=== PATIENT | female | born 1995 | race Caucasian/White ===

== ENCOUNTER 2022-06-24 11:04 | Emergency (ER) | payer OTHER, SELFPAY ==
[2022-06-24 11:28] VITALS: BP 121/75; PULSE 82; RESP 18; TEMP 36.8; O2SAT 99; BMI 28.3
[2022-06-24 14:45] LABS: Basophils Absolute Auto 0.02 K/uL (0.00-0.30); Basophils Percent Auto 0.3 % (0.0-3.0); Eosinophils Absolute Auto 0.06 K/uL (0.00-0.50); Eosinophils Percent Auto 0.8 % (0.0-7.0); Hematocrit 41.1 % (33.0-51.0); Hemoglobin* 13.7 gm/dL (12.0-16.0); Immature Granulocytes Abs Auto 0.01 K/uL (0.00-0.30); Immature Granulocytes Pct Auto 0.1 %; Lymphocytes Absolute Auto 2.22 K/uL (0.90-2.90); Lymphocytes Percent Auto 30.6 % (20-44); Mean Corpuscular HGB Conc 33 gm/dL (32-36); Mean Corpuscular Hemoglobin 31 pg (26-34); Mean Corpuscular Volume 92 fL (80-100); Monocytes Percent Auto 4.8 % (0.0-11.0); Neutrophils Percent Auto 63.4 % (42.0-72.0); Platelet Count* 293 K/uL (140-440); RDW Coefficient of Variation % 11.7 % (11.5-15.5); Red Blood Count 4.47 m/uL (4.00-5.20); White Blood Count* 7.26 K/uL (4.50-11.00)
[2022-06-24 14:59] LABS: Slide Review Reflex No
[2022-06-24 15:00] LABS: HCG Qualitative Serum* Positive (Negative)
--- NOTE | 2022-06-24 15:21 | ED.NURSE ---
bleeding has decreased
--- NOTE | 2022-06-24 15:23 | CRLHL7_ITS ---
For Patients: As a result of the Century Cures Act, medical imaging exams and procedure reports are released immediately into your electronic medical record. You may view this report before your referring provider. If you have questions, please contact your health care provider. INDICATION: Bleeding, status post miscarriage (passed sac yesterday). Question retained products of conception. COMPARISON: None. TECHNIQUE: 2D womack scale and color Doppler images were acquired of the pelvis using a transvaginal approach. FINDINGS: Sonographic images demonstrate a normal size and smooth outer contour of the uterus. The uterus is anteverted in position. The myometrium has uniform echotexture. The endometrial lining measures 6 mm in composite thickness. There is a small amount of complex avascular material within the endometrial canal in the uterine fundus which likely represents blood products. No evidence of retained products of conception. The right ovary measures 2.5 x 2.0 x 1.9 cm in size and the left ovary measures 2.3 x 1.3 x 2.1 cm in size. Blood flow is seen within both ovaries. No free fluid in the cul-de-sac. IMPRESSION: Small amount of complex avascular material within the endometrial canal likely represents blood products. No evidence of retained products of conception. Dictated by Rosibel Hoskins MD @ 06/24/2022 4:39:13 PM (Electronically Signed)
--- NOTE | 2022-06-24 17:16 | ED.PREGNANCY ---
HPI - General Date Seen: 06/24/22 Chief complaint: OB/Uterine Contractions Stated complaint: Miscarriage last night Time Seen by Provider: 06/24/22 13:56 Source: patient and family Mode of arrival: ambulatory Limitations: no limitations History of Present Illness HPI Narrative: Patient is a 26-year-old at 7 weeks gestation, presents here with a miscarriage. She started bleeding 3 days ago, she then passed some tissue, took a picture of it is able to show me here. Her bleeding has really slow down she does not have any cramping, but she called the clinic and was told to come into the emergency room. She does no idea what her blood status is, she does not have a history of anemia, denies any fevers chills or sweats dysuria frequency, he says her bleeding now is more like a heavy period. Blood is described as dark No history of any tubal issues, no history of STDs, or any risk factors for ectopic . MD Complaint: vaginal bleeding Related Data Home Medications Medication Instructions Recorded Confirmed No Known Home Medications 06/24/22 06/24/22 Allergies Allergy/AdvReac Type Severity Reaction Status Date / Time Penicillins Allergy Unknown Verified 06/24/22 11:32 Review of Systems Status of ROS: Reports: 10 or more systems reviewed and unremarkable except as noted in History and below PFSH [facility] Social History Smoking Status: Never smoker Do you use any of these nicotine containing products: None How often do you have a drink containing alcohol: never AUDIT-C Alcohol total score: 0 Non-prescribed substance use: denies use Exam Narrative: Exam Narrative: On examination in room 7 she is in no apparent distress her pupils equal round reactive to light she has excellent color to her conjunctiva, there is no scleral icterus, neck is supple, cranial nerves 3-12 are normal, oropharynx normal, her chest is clear easy respirations are noted, heart sounds are normal, normal S1-S2, no clicks murmurs or gallops, her abdomen is soft, slightly obese, no organomegaly, no tenderness, no palpable uterus, no CVA tenderness, she was all extremities independently and well. With a nurse present pelvic exam is done, this shows a no lip soft, with some scant blood coming out of it, and they os is closed. No masses no tenderness on bimanual examination, noted. Const: Vital Signs, click to edit/add: Vital Signs - 24 hr 06/24/22 11:28 Temperature 98.2 F Pulse Rate [Pulse Oximeter] 82 Respiratory Rate 18 Blood Pressure [Ri ght Upper Arm] 121/75 Pulse Oximetry 99 Oxygen Delivery Me thod Room Air Documenting provider has reviewed patient's vital signs: yes Course Course Hospital Course: I reviewed her case with the glue spreading machine operator on-call she recommended that at this point she can follow up with the clinic visit in 10-14 days, repeat the test done on the urine at that point if it is negative then further issue need to be done, if she has increasing bleeding, abdominal pain, passing out, she needs to come back, patient was agreeable to this plan after my discussion with her, Vital Signs Vital signs: Initial Vital Signs Temperature 98.2 F 06/24/22 11:28 Temperature Source Temporal Artery Scan 06/24/22 11:28 Pulse Rate 82 06/24/22 11:28 Respiratory Rate 18 06/24/22 11:28 Blood Pressure 121/75 06/24/22 11:28 Blood Pressure Mean 90 06/24/22 11:28 Pulse Oximetry 99 06/24/22 11:28 Oxygen Delivery Method 06/24/22 11:28 Vital Signs Temperature 98.2 F 06/24/22 11:28 Pulse Rate 82 06/24/22 11:28 Respiratory Rate 18 06/24/22 11:28 Blood Pressure 121/75 06/24/22 11:28 Pulse Oximetry 99 06/24/22 11:28 Oxygen Delivery Method 06/24/22 11:28 Temperature 98.2 F 06/24/22 11:28 Pulse Rate 82 06/24/22 11:28 Respiratory Rate 18 06/24/22 11:28 Blood Pressure 121/75 06/24/22 11:28 Pulse Oximetry 99 06/24/22 11:28 Oxygen Delivery Method 06/24/22 11:28 MDM - OB/Uterine Contractions MDM Narrative Medical decision making narrative: Differential diagnosis includes but is not limited to uterine fibroids, intrauterine , ectopic , placenta previa, spontaneous , and cancers of the uterus and cervix. This includes the life-threatening complications of hypovolemia secondary to bleeding, ectopic and cancer. Medical Records Attestation: I reviewed the patient's medical records. Lab Data Attestation: I reviewed the patient's lab results. Labs: Lab Results 06/24/22 06/24/22 06/24/22 Range/Units 14:30 14:30 14:30 WBC 7.26 (4.50-11.00) K/uL RBC 4.47 (4.00-5.20) m/uL Hgb 13.7 (12.0-16.0) gm/dL Hct 41.1 (33.0-51.0) % MCV 92 (80-100) fL MCH 31 (26-34) pg MCHC 33 (32-36) gm/dL RDW Coeff of Umu 11.7 (11.5-15.5) % Plt Count 293 (140-440) K/uL Neut % (Auto) 63.4 (42.0-72.0) % Lymph % (Auto) 30.6 (20-44) % [place] % (Auto) 4.8 (0.0-11.0) % Eos % (Auto) 0.8 (0.0-7.0) % Baso % (Auto) 0.3 (0.0-3.0) % Neut # (Auto) 4.60 (1.7-7.0) K/uL Lymph # (Auto) 2.22 (0.90-2.90) K/uL [place] # (Auto) 0.30 (0.00-0.90) K/UL Eos # (Auto) 0.06 (0.00-0.50) K/uL Baso # (Auto) 0.02 (0.00-0.30) K/uL Abs Immat Gran (auto) 0.01 (0.00-0.30) K/uL Imm/Tot Granulo (auto) 0.1 % HCG, Qual Positive (Negative) HCG, Quant mIU/mL Blood Type A Positive 06/24/22 Range/Units 15:24 WBC (4.50-11.00) K/uL RBC (4.00-5.20) m/uL Hgb (12.0-16.0) gm/dL Hct (33.0-51.0) % MCV (80-100) fL MCH (26-34) pg MCHC (32-36) gm/dL RDW Coeff of Umu (11.5-15.5) % Plt Count (140-440) K/uL Neut % (Auto) (42.0-72.0) % Lymph % (Auto) (20-44) % [place] % (Auto) (0.0-11.0) % Eos % (Auto) (0.0-7.0) % Baso % (Auto) (0.0-3.0) % Neut # (Auto) (1.7-7.0) K/uL Lymph # (Auto) (0.90-2.90) K/uL [place] # (Auto) (0.00-0.90) K/UL Eos # (Auto) (0.00-0.50) K/uL Baso # (Auto) (0.00-0.30) K/uL Abs Immat Gran (auto) (0.00-0.30) K/uL Imm/Tot Granulo (auto) % HCG, Qual (Negative) HCG, Quant 280.58 mIU/mL Blood Type Imaging Data Pelvic ultrasound: Attestation: I have reviewed the pertinent imaging results. Radiologist's impression: [facility] Patient ID:?[id number] Site Patient ID:?[id number]. Site :?[id number] Study:?US Pelvis TV-06/24/2022 4:00:58 PM Ordering Physician:Jordan Moody Final Report: INDICATION: Bleeding, status post miscarriage (passed sac yesterday). Question retained products of conception. COMPARISON: None. TECHNIQUE: 2D womack scale and color Doppler images were acquired of the pelvis using a transvaginal approach. FINDINGS: Sonographic images demonstrate a normal size and smooth outer contour of the uterus. The uterus is anteverted in position. The myometrium has uniform echotexture. The endometrial lining measures 6 mm in composite thickness. There is a small amount of complex avascular material within the endometrial canal in the uterine fundus which likely represents blood products. No evidence of retained products of conception. The right ovary measures 2.5 x 2.0 x 1.9 cm in size and the left ovary measures 2.3 x 1.3 x 2.1 cm in size. Blood flow is seen within both ovaries. No free fluid in the cul-de-sac. IMPRESSION: Small amount of complex avascular material within the endometrial canal likely represents blood products. No evidence of retained products of conception. Dictated by Rosibel Hoskins MD @ 06/24/2022 4:39:13 PM (Electronic Signature) Discharge Plan Discharge Clinical Impression: Complete miscarriage Patient Disposition: Home, Self-Care Condition: Stable Instructions: Miscarriage (ED) Additional Instructions: Home rest, ibuprofen 600 mg p.o. t.i.d. as needed, for cramping, if bleeding increases, you get dizzy or pass out, increasing pain, then you need to come back and be seen otherwise Gynecology recommends follow-up within 10 days to 2 weeks at the clinic, they also suggest he do a test at home, at a minimum in 2 weeks and this should be negative at that time. Prescriptions: No Action No Known Home Medications Follow Up/Referrals: Cally Car MD [Primary Care Provider] - Stand Alone Forms: [employer] Info Instructions
== END 2022-06-24 17:34 | disposition home or self-care (01) ==
PROVIDERS: Emergency Provider Family Medicine; PCP Family Medicine
DX: O03.9 Complete or unspecified spontaneous abortion without complication (principal)
CPT/HCPCS: 36415; 76830; 84702; 84703; 85025; 86900; 86901; 99283; 99284

== ENCOUNTER 2022-06-25 10:54 | Outpatient (CLI) | payer OTHER, SELFPAY ==
[2022-06-25 15:26] LABS: HCG Quantitative* 203.79 mIU/mL
== END 2022-06-25 10:55 | disposition home or self-care (01) ==
LOC: NFLDREF 10:55
PROVIDERS: PCP Family Medicine; Visit Provider Obstetrics & Gynecology
DX: O03.9 Complete or unspecified spontaneous abortion without complication (principal)
CPT/HCPCS: 84702

== ENCOUNTER 2022-09-06 13:40 | Outpatient (CLI) | payer BC, SELFPAY ==
--- NOTE | 2022-09-06 14:00 | CRLHL7_ITS ---
For Patients: As a result of the Century Cures Act, medical imaging exams and procedure reports are released immediately into your electronic medical record. You may view this report before your referring provider. If you have questions, please contact your health care provider. INDICATION: First trimester scan, establish dates. COMPARISON: None. TECHNIQUE: Real-time womack-scale imaging of the pelvis was performed. FINDINGS: Sonographic imaging demonstrates a single living intrauterine gestation. The embryo demonstrates a regular cardiac rate measuring 165 beats per minute. The embryo`s crown-rump length measurement of 1.5 cm corresponds to a gestational age of 7 weeks 6 days with a sonographic due date of 04/19/2023. There is a normal-appearing yolk sac. There are no gross abnormalities noted within the embryo at this early state of development. The gestational sac has a normal appearance. There is no evidence of a perigestational hemorrhage. The amount of fluid within the sac appears appropriate for gestational age. The cervix is closed. The myometrium appears normal. The ovaries are of normal size. Corpus luteal cyst left ovary. There are no suspicious fluid collections noted in the cul-de-sac. IMPRESSION: Normal first trimester OB ultrasound exam. Gestational age calculated at 7 weeks 6 days with a sonographic due date of 04/19/2023. Dictated by Remy Pompa MD @ 09/06/2022 3:18:52 PM (Electronically Signed)
== END 2022-09-06 13:41 | disposition home or self-care (01) ==
PROVIDERS: PCP Family Medicine; Visit Provider Registered Nurse
DX: Z34.91 Encounter for supervision of normal pregnancy, unspecified, first trimester (principal); Z3A.08 8 weeks gestation of pregnancy
CPT/HCPCS: 76817; 86592; 86703; 86762; 86787; 86803; 86850; 86900; 86901; 87340; 87491; 87591

== ENCOUNTER 2022-10-11 14:30 | Outpatient (CLI) | payer BC, SELFPAY | END 2022-10-11 14:31 | disposition home or self-care (01) | PROVIDERS: PCP Family Medicine; Visit Provider Advanced Practice Midwife | DX: Z34.91 Encounter for supervision of normal pregnancy, unspecified, first trimester (principal); Z3A.13 13 weeks gestation of pregnancy | CPT/HCPCS: 87086 ==

== ENCOUNTER 2022-11-29 09:49 | Outpatient (CLI) | payer BC, SELFPAY ==
--- NOTE | 2022-11-29 10:00 | CRLHL7_ITS ---
For Patients: As a result of the Century Cures Act, medical imaging exams and procedure reports are released immediately into your electronic medical record. You may view this report before your referring provider. If you have questions, please contact your health care provider. INDICATION: Evaluate anatomy. COMPARISON: 09/06/2022 TECHNIQUE: Real time womack scale imaging of the fetus was performed as well as color Doppler analysis of the umbilical vessels. FINDINGS: Sonographic imaging demonstrates a single living intrauterine gestation. Fetus demonstrates a regular cardiac rate of 154 beats per minute. Fetus has a vertex position. The placenta lies anteriorly without evidence of placenta previa. The edge of the placenta is located 3.1 cm from the internal cervical os with transvaginal imaging. Amniotic fluid volume appears normal. Single deepest vertical pocket: 5.3 cm. The cervix is closed and measures 3.1 cm in length. The composite ultrasound gestational age is calculated at 20 weeks 3 days with an estimated sonographic due date of 04/15/2023. The estimated weight is 365 grams which lies at the 64th %. The following biometric measurements were obtained: Biparietal diameter: 4.8 cm/20 weeks 4 days 62nd% Head circumference: 17.6 cm/20 weeks 0 days 31st% Abdominal circumference: 15.6 cm/20 weeks 5 days 60th% Femur length: 3.4 cm/20 weeks 4 days 52nd% The HC/AC ratio measures: 1.13 range (1.07-1.25) On anatomic survey, there is a normal appearance of the cerebral ventricles, cavum septi pellucidi, cisterna magna and cerebellum. The nose, lips, and facial profile appear normal. The cervical, thoracic and lumbar spine are well visualized and appear normal. There is a normal four-chamber heart view and the left and right ventricular outflow tracts appear normal. The diaphragm and stomach appear normal. The kidneys and bladder also appear normal. There is a normal three-vessel cord and cord insertion site. The four extremities appear normal. IMPRESSION: Normal OB ultrasound exam with concordance of clinical and sonographic dating. No intrinsic abnormalities noted on anatomic survey. Dictated by Remy Pompa MD @ 11/29/2022 11:59:16 AM (Electronically Signed)
== END 2022-11-29 09:50 | disposition home or self-care (01) ==
LOC: US 09:50
PROVIDERS: PCP Family Medicine; Visit Provider Advanced Practice Midwife
DX: Z34.92 Encounter for supervision of normal pregnancy, unspecified, second trimester (principal); Z3A.20 20 weeks gestation of pregnancy
CPT/HCPCS: 76805; 76817

== ENCOUNTER 2023-02-07 09:15 | Outpatient (CLI) | payer BC, SELFPAY | END 2023-02-07 09:16 | disposition home or self-care (01) | LOC: NFLDREF 02-09 07:29 | PROVIDERS: PCP Family Medicine; Referring Provider Family Medicine; Visit Provider Advanced Practice Midwife | DX: Z34.93 Encounter for supervision of normal pregnancy, unspecified, third trimester (principal); Z3A.30 30 weeks gestation of pregnancy | CPT/HCPCS: 86592 ==

== ENCOUNTER 2023-03-11 10:08 | Outpatient (CLI) | payer BC, SELFPAY ==
[2023-03-11 10:16] VITALS: BP 129/78; PULSE 93; TEMP 37
[2023-03-11 11:08] LABS: Amnisure Rom* Negative
[2023-03-11 11:10] LABS: Clue Cells <20% Clue Cells Seen (None Seen); Trichomonas No Trichomonas Seen (None Seen); Yeast No Yeast Seen (None Seen)
--- NOTE | 2023-03-11 11:35 | PC.OBNST ---
NST Note NST Note Start: 03/11/23 10:16 Freq: ONCE Status: Active Protocol: Document 03/11/23 11:33 HCR (Rec: 03/11/23 11:34 HCR [id number]) NST Note 2 Para (# of births) 0 EDC 04/16/23 Gestational Age In Weeks & Days 34 Weeks & 6 Days Patient Presented with Complaint(s) of Leaking fluid Reactive Yes Appropriate for Gestational Age Yes SHEN Mathur RNC Date 03/11/23 Reactive Yes Appropriate for Gestational Age Yes SHEN Mccarthy, SHEN Date 03/11/23 OB NST charge Yes Complete NST Note via Write Note Yes The provider's electronic signature indicates the NST is reactive/appropriate for gestational age. *Note to provider: If an addendum is required, open the patient's chart and click on the note under the Nurse/Allied Health tab.
[2023-03-12 11:49] LABS: Strep B DNA Probe NEGATIVE (Negative)
[2023-03-12 11:56] LABS: Strep B Pen/Amox Allergy No
== END 2023-03-11 11:28 | disposition home or self-care (01) ==
LOC: OB OUT 10:09 → OB 10:10
PROVIDERS: PCP Family Medicine; Visit Provider Advanced Practice Midwife
DX: Z34.93 Encounter for supervision of normal pregnancy, unspecified, third trimester (principal); Z3A.36 36 weeks gestation of pregnancy
CPT/HCPCS: 59025; 84112; 87081; 87210; 87653; 99213

== ENCOUNTER 2023-04-01 14:55 | Inpatient (IN) | payer BC, SELFPAY ==
[2023-04-01] VITALS (8 sets, daily range): BP systolic 118–124; BP diastolic 71–79; PULSE 74–96; RESP 16; TEMP 36.6–37.1; O2SAT 97; BMI 35.9
[2023-04-01 14:34] LABS: Amnisure Rom* POSITIVE
--- NOTE | 2023-04-01 15:51 | W.PM.LDBA ---
Subjective History of Present Illness Date Seen: 04/01/23 Narrative: Patient is being admitted to Labor and Delivery for SROM at 0330 this morning. At that time she had a small gush that woke her up and another as she was walking down the stairs. She did not have any continued leaking after that only normal mucous discharge. She is rosio but they are not painful. She presented to L&D this afternoon and was found to be AmniSure+. We had a discussion about expectant management or augmentation with PO Cytotec. Reviewed risks and benefits of both and she would like to proceed with PO Cytotec per protocol. She is a 27 year old at 37.6 weeks gestation. Her full history and physical was dictated by Argenis Quezada CNM on 03/28/23. Please see this for details. 1. N+V: Cont. w/ B6. Add Unisom. Rx sent for Zofran. Resolved 2. H/o migraine w/ aura. Benadryl working well. Consider magnesium. 3. H/o tobacco use. Quit several months prior to . Specific Issues/Plans Ani (pronounced AH-nee) G 2 P0010 : Lamonte H&P by Argenis Quezada CNM 03/28/23 1. N+V: Cont. w/ B6. Add Unisom. Rx sent for Zofran. Resolved 2. H/o migraine w/ aura. Benadryl working well. Consider magnesium. 3. H/o tobacco use. Quit several months prior to . Flu: 09/06/2022 COVID: Completed in boosted x1. Recommended bivalent booster. TDAP: received 02/21/23 32wk Mental Health: 02/21/2023 OB - Problem Based A/P Additional Plan (1) PROM (premature rupture of membranes): Status: Acute (2) : Status: Acute Plan ASSESSMENT:? at 37.6 weeks gestation? GBS negative? Uncomplicated ? Spontaneous PROM? ?? PLAN:? 1. Reviewed risks and benefits of augmentation of labor with Cytotec vs expectant management. Pt prefers Cytotec. 3. Desires water . Consent signed. Hep C negative.? 4. Candidate for analgesia of choice. Planning unmedicated .? 5. Anticipate ? 8. No IV needed at this time.Consider if patient condition changes and per protocol. 6. Continuous monitor per Cytotec policy. Can consider intermittent auscultation if condition changes.? Delivery/Labor/Induction Plan Plan: other (augmentation with Cytotec) Induction method: per misoprostol protocol OB Result Labs Blood Type: A (+) positive GBS Status: negative OB Exam Physical Exam Vital signs: Temp Pulse Resp BP Pulse Ox 97.9 F 78 16 124/79 97 04/01/23 14:30 04/01/23 14:30 04/01/23 14:30 04/01/23 14:30 04/01/23 14:27 Narrative: Psychiatric:? Alert and oriented x3? HEENT:? Normocephalic, atraumatic? Neck:? Supple Lungs:? Clear to auscultation bilaterally? Heart:? Regular rate and rhythm, no murmur, rub or gallop? Abdomen:? Soft, nontender, and gravid? Extremities:? No edema or erythema? Detailed Labor and Delivery Exam Patient Gravid: Yes Dilation (cm): 1 (per RN exam) Effacement (%): 40 Contraction Frequency: 1-5 min Tachysystole: No Contraction intensity: Mild Fetus (Single) Amniotic Membrane Status: SROM (scant amount ) Amniotic Membrane Fluid Description: Clear Heart Rate Baseline: 130 Monitor Accelerations: Present Monitor Decelerations: None Educational Program Director Variability: Moderate (6-25)
[2023-04-01] MEDS: miSOPROStoL 25 MCG/0.25 TABLET PO ×2 (16:21→19:45)
--- NOTE | 2023-04-01 20:46 | PM.OBPNL ---
Subjective Date Seen: 04/01/23 Narrative: Sandrine has recently received her second dose of Cytotec. She did have a couple of variables so it was held for a while but they have resolved and there is a category I tracing. She is only feeling slight cramping and hasn't really felt much changes. She did have some leaking of amniotic fluid earlier. We discussed the option of increasing to a 50mcg dose and she is agreeable to this plan. Will plan on continuing with 50mcg doses unless her contractions become more painful or too close together or changes in tracing. Will continue to limit SVE and monitor for temperature changes, signs of infection or baseline changes. Objective Vital Signs: Last Vital Signs Temp 98.1 F 04/01/23 20:30 Pulse 96 04/01/23 19:23 Resp 16 04/01/23 20:30 BP 118/71 04/01/23 19:23 Pulse Ox 97 04/01/23 14:27 Contractions Monitor mode: External Contraction Frequency: irregular, palpate mild Contraction pattern: Irregular Contraction intensity: Mild Assessment Assessment: induction ongoing (augmentation) Heart Rate Baseline: 130 Drawbridge Operator Variability: Moderate (6-25) Monitor Accelerations: Present Monitor Decelerations: None Plan Plan: Continue with Cytotec induction. Increase dose to 50cg Q 4 hours. Plan to give 6 doses total per policy. Evaluate plan after the 6 doses and PRN. Monitoring per Cytotec policy. Monitor for baseline changes, VS changes, or signs of infection. Limit SVE.
[2023-04-01] MEDS: miSOPROStoL 25 MCG/0.25 TABLET 50 MCG PO (22:21)
[2023-04-02] VITALS (79 sets, daily range): BP systolic 95–144; BP diastolic 47–88; PULSE 75–116; RESP 16–18; TEMP 36.3–37.4; O2SAT 90–100
[2023-04-02] MEDS: miSOPROStoL 25 MCG/0.25 TABLET PO (03:22)
--- NOTE | 2023-04-02 06:27 | P.OBPN_ITS ---
Subjective Date Seen: 04/02/23 Narrative: Sandrine has received 4 doses of Cytotec at this time. She is feeling more cramping but not a lot more uncomfortable with contractions. She is resting comfortably and did get some sleep overnight. She did have a variable this morning followed by minimal variability. She did increase her fluid intake, change position and eat some food. Baby did get more reactive again after a while. After a discussion it was decided to opt for another 50mcg dose for her next dose. We did discuss the possibility of starting Pitocin after this dose of Cytotec. Objective Vital Signs: Last Vital Signs Temp 97.8 F 04/02/23 05:30 Pulse 79 04/02/23 03:24 Resp 16 04/02/23 05:30 BP 107/66 04/02/23 03:24 Pulse Ox 97 04/01/23 14:27 Contractions Monitor mode: External Contraction pattern: Irregular Contraction intensity: Mild Assessment Heart Rate Baseline: 130 Prestressed Concrete Laborer Variability: Moderate (6-25) Monitor Accelerations: Present Monitor Decelerations: None Plan Plan: Continue with Cytotec induction.
[2023-04-02] MEDS: miSOPROStoL 25 MCG/0.25 TABLET 50 MCG PO (06:55)
[2023-04-02 07:54] LABS: Basophils Absolute Auto 0.03 K/uL (0.00-0.30); Basophils Percent Auto 0.3 % (0.0-3.0); Eosinophils Absolute Auto 0.05 K/uL (0.00-0.50); Eosinophils Percent Auto 0.6 % (0.0-7.0); Hematocrit 36.9 % (33.0-51.0); Hemoglobin* 12.1 gm/dL (12.0-16.0); Immature Granulocytes Abs Auto 0.01 K/uL (0.00-0.30); Immature Granulocytes Pct Auto 0.1 %; Lymphocytes Absolute Auto 2.26 K/uL (0.90-2.90); Lymphocytes Percent Auto 24.9 % (20-44); Mean Corpuscular HGB Conc 33 gm/dL (32-36); Mean Corpuscular Hemoglobin 29 pg (26-34); Mean Corpuscular Volume 88 fL (80-100); Monocytes Percent Auto 6.3 % (0.0-11.0); Neutrophils Absolute Auto 6.17 K/uL (1.7-7.0); Neutrophils Percent Auto 67.8 % (42.0-72.0); Platelet Count* 257 K/uL (140-440); RDW Coefficient of Variation % 13.5 % (11.5-15.5); White Blood Count* 9.09 K/uL (4.50-11.00)
[2023-04-02 08:03] LABS: Slide Review Reflex No
[2023-04-02] MEDS: LACTATED RINGERS 1000 ML 1,000 ML IV (10:25)
[2023-04-02] MEDS: ROPIVACAINE 0.2% 100 ml 100 ML 12 MG EPIDURAL (11:37)
[2023-04-02] MEDS: LACTATED RINGERS 1000 ML 1,000 ML 125 ML IV ×3 (11:43→21:42)
[2023-04-02] MEDS: PHENYLEPHRINE 100 MCG/ML SYRINGE IVP ×2 (11:46→15:00)
--- NOTE | 2023-04-02 11:48 | P.ANBPRC_ITS ---
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 Interestingly, she is also vegan. She has some college education. She is originally from [place] but lived in [place] for some years. She exercises 5-7 days / week. She smokes 3 cigs / day, and started after diagnosis of miscarriage. She drinks a little wine on weekends. She doesn't use recreational drugs What is your current living situation?: I presently have a place to live Problems where you live: no known problems In the past 12 months, utilities in danger of being shut off: no In the past 12 mos, have been you worried that your food would run out before you had money to buy more?: never true In the past 12 mos, the food you bought just didn't last and you didn't have money to buy more?: never true Smoking Status: Former smoker Do you use any of these nicotine containing products: None How often do you have a drink containing alcohol: never AUDIT-C Alcohol total score: 0 Non-prescribed substance use: denies use How often does anyone, including family, friends and others, physically hurt you : never How often does anyone, including family, friends and others, insult or talk down to you: never How often does anyone, including family, friends and others, threaten you with harm: never How often does anyone, including family, friends and others, scream or curse at you: never Little interest or pleasure in doing things: not at all Feeling down, depressed, or hopeless: not at all Meds Home Medications and Allergies Home Medications Medication Instructions Recorded Confirmed Type docosahexaenoic acid 200 mg 500 mg PO DAILY 09/06/22 04/01/23 History capsule ( DHA) ferrous gluconate 225 mg (27 mg 225 mg PO QDAY 09/06/22 04/01/23 History iron) tablet (Fergon) magnesium 250 mg tablet 250 mg PO QDAY 03/07/23 04/01/23 History Allergies Allergy/AdvReac Type Severity Reaction Status Date / Time Penicillins Allergy Unknown Verified 04/01/23 14:41 walnut AdvReac Intermediate Swelling Verified 04/01/23 14:41 of Lip/Tongue/Throat ondansetron [From Zofran] AdvReac Mild Gastrointestinal Verified 04/01/23 14:41 Upset dairy AdvReac Intermediate Hives Uncoded 03/28/23 09:21 Results Labs Labs: Laboratory Results - last 24 hr 04/01/23 04/02/23 14:08 07:44 WBC 9.09 RBC 4.20 Hgb 12.1 Hct 36.9 MCV 88 MCH 29 MCHC 33 RDW Coeff of Umu 13.5 Plt Count 257 Neut % (Auto) 67.8 Lymph % (Auto) 24.9 [place] % (Auto) 6.3 Eos % (Auto) 0.6 Baso % (Auto) 0.3 Neut # (Auto) 6.17 Lymph # (Auto) 2.26 [place] # (Auto) 0.60 Eos # (Auto) 0.05 Baso # (Auto) 0.03 Abs Immat Gran (auto) 0.01 Imm/Tot Granulo (auto) 0.1 Membrane Rupture POSITIVE Blood Type A Positive Antibody Screen NEGATIVE Vital Signs Vital Signs: Last Vital Signs Temp 99.4 F 04/02/23 09:07 Pulse 75 04/02/23 11:46 Resp 16 04/02/23 09:07 BP 111/60 04/02/23 11:46 Pulse Ox 97 04/02/23 11:44 Weight: 98.067 kg Height: 165.1 cm Anesthesia Procedures Epidural Insertion Patient Location: OB Start Time: 11:48 Stop Time: 11:45 Start Date: 04/02/23 Stop Date: 04/02/23 Reason for Block: procedure for pain Patient Position: sitting Performed By: Neha Coto Preanesthetic Checklist: IV checked, risks and benefits discussed, monitors and equipment checked, timeout performed and anesthesia consent Prep: chlorhexidine gluconate Monitoring: blood pressure monitoring, continuous pulse oximetry and heart rate Approach: midline Vertebral Space: lumbar (1-5) Epidural Technique: TERI saline Needle Type: Tuohy needle Injection Technique: continuous catheter Needle gauge: 17 Needle Length (cm): 10 cm Needle Insertion Depth (cm): 6 Catheter Gauge: 19 Catheter Type: multi-orifice Catheter at skin depth (cm): 12 Test Dose Result: negative and lidocaine 1.5% with epinephrine 1 to 200,000
[2023-04-02] MEDS: OXYTOCIN 30 unit/500 ML in NS 30 UNIT/500 ML BAG IVPB (13:18)
--- NOTE | 2023-04-02 13:20 | PM.OBPNL ---
Subjective Time Seen by Provider: 13:00 Date Seen: 04/02/23 Narrative: Ani noted increasing intensity of ctx. Requested SVE, and noted to be 2-. At that time she requested an epidural for pain management and exhaustion. Epidural placed. She is coping well with labor pain/contractions, comfortable w/ epidural. She has support at the bedside. She did have a decel after epidural placement, which resolved w/ position changes. We discuss at that time that we would let baby recover for the time being, but that if ctx remained spaced out, that we would need to discuss pitocin augmentation. Objective Exam: VSS, afebrile General Appearance:? Calm, cooperative. No acute distress. ? Psychiatric Exam: Alert and oriented, appropriate affect Abdomen: Gravid Ctx: ?mild irregular ctx, Q 5-8 mins apart FHTs: Baseline: 135. Variability: mod. Accels: present. Decels: rare. SVE: /-2 Membranes: SROM 34 X hours ? Vital Signs: Last Vital Signs Temp 98.5 F 04/02/23 13:19 Pulse 91 04/02/23 13:05 Resp 18 04/02/23 13:19 BP 107/69 04/02/23 13:05 Pulse Ox 99 04/02/23 11:59 Assessment Heart Rate Baseline: 130 Plan Plan: Assessment:?? at 38.0 gestation?? GBS neg Patient is coping well with challenges of labor.?? Labor type: PROM, cytotec augmentation uncomplicated Labor complicated by: -prolonged rupture of membranes -not in active labor ? Plan:?? Decision made to proceed with pitocin augmentation. Ani agrees with this plan. Continue with routine intrapartum cares as ordered.?? Patient encouraged to move and change positions to promote physiologic labor and .?? Continue with epidural for pain management. Anticipate progress to NVD.
--- NOTE | 2023-04-02 16:42 | PM.OBCN1 ---
OB - CN: HPI Date of Consult Time Seen by Provider: 16:43 Date Seen: 04/02/23 Patient: [facility] Patient Consult date: 04/02/23 Requesting Physician: Ledy Drew CNM Primary Care Provider: Cally Car MD Consult Narrative Reason for consult: nonreassuring FHTs Narrative: The patient is a 27 year old G 2 P 0010 at 38 0/7 weeks gestation that was admitted to the [facility] on 04/01/23 for PROM. She has now had ruptured membranes for more than 36 hours. She has an epidural for pain managment. Intermittently, throughout the day, FHTs have demonstrated variable and late decelerations, and two episodes of bradycardia, which resolved after Code Concha was called. Most recently, when pitocin administration was increased from 3 mu/min to 4 mu/min, repetitive late decelerations were again observed. Pitocin infusion discontinued. Cervical exam done by DEEDEE: 5 cm dilated, station high. History of Present Dating criteria: based on LMP care: good care Ultrasounds: normal 1st trimester US and normal mid trimester US complications comment: None. Medical Complications: None. History History 2 Elective abortions Para 0 Spontaneous abortions Hx # Term Pregnancies Ectopic pregnancies Hx # Pregnancies Multiple births Number of Living Children 0 Past Pregnancies Del. Date GA/Weeks Outcome Route wt Inf Gender Labor Lgth Anesthesia Location Provider Compli Unknown 7 spontaneous Delivery Date: Last Updated by: Mary Jane Da Silva LPN f/u in [facility] when miscarrying Labs Blood type: A (+) positive Rubella: immune RPR/VDLR: nonreactive GBS status: negative HBsAG: negative OB Labs: Lab Assessment Start: 04/01/23 15:15 Freq: ONCE Status: Complete Protocol: PC.OBGBS Activity Type Activity Date Activity User E-sign Co-sign Detail Recorded Client Recorded Date Recorded By Document 04/01/23 15:20 SUZANNE [id number] 04/01/23 15:21 SUZANNE 04/01/23 15:20 Lab Assessment GBS Status negative GBS Additional Criteria None No Treatment Needed OK Are Labs Available Yes Maternal Blood Type A Maternal RH Factor Positive Evaluate Maternal Rubella Immune Status Immune Hepatitis B Surface Antigen Negative Maternal HIV Status Negative Maternal Syphillis (RPR) Status Negative [facility] Medical History Miscarriage ?O03.9 - Complete or unspecified spontaneous without complication (ICD-10) Migraine with aura ?G43.109 - Migraine with aura, not intractable, without status migrainosus (ICD-10) Surgical History H/O wisdom tooth extraction ?K08.409 - Partial loss of teeth, unspecified cause, unspecified class (ICD-10) Social History Narrative: 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 Interestingly, she is also vegan. She has some college education. She is originally from [place] but lived in [place] for some years. She exercises 5-7 days / week. She smokes 3 cigs / day, and started after diagnosis of miscarriage. She drinks a little wine on weekends. She doesn't use recreational drugs What is your current living situation?: I presently have a place to live Problems where you live: no known problems In the past 12 months, utilities in danger of being shut off: no In the past 12 mos, have been you worried that your food would run out before you had money to buy more?: never true In the past 12 mos, the food you bought just didn't last and you didn't have money to buy more?: never true Smoking Status: Former smoker Do you use any of these nicotine containing products: None How often do you have a drink containing alcohol: never AUDIT-C Alcohol total score: 0 Non-prescribed substance use: denies use How often does anyone, including family, friends and others, physically hurt you: never How often does anyone, including family, friends and others, insult or talk down to you: never How often does anyone, including family, friends and others, threaten you with harm: never How often does anyone, including family, friends and others, scream or curse at you: never Little interest or pleasure in doing things: not at all Feeling down, depressed, or hopeless: not at all Meds Home Medications and Allergies Home Medications Medication Instructions Recorded Confirmed Type docosahexaenoic acid 200 mg 500 mg PO DAILY 09/06/22 04/01/23 History capsule ( DHA) ferrous gluconate 225 mg (27 mg 225 mg PO QDAY 09/06/22 04/01/23 History iron) tablet (Fergon) magnesium 250 mg tablet 250 mg PO QDAY 03/07/23 04/01/23 History Allergies Allergy/AdvReac Type Severity Reaction Status Date / Time Penicillins Allergy Unknown Verified 04/01/23 14:41 walnut AdvReac Intermediate Swelling Verified 04/01/23 14:41 of Lip/Tongue/Throat ondansetron [From Zofran] AdvReac Mild Gastrointestinal Verified 04/01/23 14:41 Upset dairy AdvReac Intermediate Hives Uncoded 03/28/23 09:21 OB - H&P: Exam Physical Exam: Vital signs: Temp Pulse Resp BP Pulse Ox 98.9 F 92 16 107/55 L 100 04/02/23 16:00 04/02/23 16:21 04/02/23 16:00 04/02/23 16:21 04/02/23 13:54 Constitutional: Constitutional: no acute distress, obese and cooperative Detailed Abdominal Exam: Comments: gravid, nontender OB - Results Labs Labs: Short CBC 04/02/23 Range/Units 07:44 WBC 9.09 (4.50-11.00) K/uL Hgb 12.1 (12.0-16.0) gm/dL Hct 36.9 (33.0-51.0) % Plt Count 257 (140-440) K/uL OB - CN: A/P Assessment and Plan (1) PROM (premature rupture of membranes): Status: Acute (2) : Status: Acute (3) Non-reassuring heart rate with late deceleration: Status: Acute Plan At this time, I would recommend proceeding with delivery. The relative risks and benefits of section were reviewed, risks including, but not limited to, bleeding, blood transfusion, infection, injury to other organs or , or anesthesia reactions. We discussed the anticipated postoperative stay, pain management, and the fact that she could be a candidate for vaginal after section with future . Informed consent was obtained. The OR crew and Anesthesia were notified. [employer] will be notified as well.
--- NOTE | 2023-04-02 16:46 | PM.OBPNL ---
Subjective Time Seen by Provider: 16:30 Date Seen: 04/02/23 Narrative: Called to room by RN. Pitocin at 4 mu, repetitive late decels noted w/ ctx. Reviewed strip w/ pt and baby's intolerance for labor. Questions answered. Objective Exam: VSS, afebrile General Appearance:? Calm, cooperative. No acute distress. ? Psychiatric Exam: Alert and oriented, appropriate affect Abdomen: Gravid Ctx: ?Q 2-5 min apart. mild -mod FHTs: Baseline: 145. Variability: mod. Accels: none. Decels: repetitive lates. SVE: 5/100/-2 Membranes: SROM 37 X hours ? Vital Signs: Last Vital Signs Temp 98.9 F 04/02/23 16:00 Pulse 92 04/02/23 16:21 Resp 16 04/02/23 16:00 BP 107/55 L 04/02/23 16:21 Pulse Ox 100 04/02/23 13:54 Assessment Heart Rate Baseline: 130 Plan Plan: Assessment:?? at 38.0 gestation?? GBS neg Patient is coping well with challenges of labor.?? Prolonged ROM Repetitive late decels ? Plan:?? Reviewed recommendation for as baby is not tolerating labor when pitocin is increased. She remains remote from delivery. Reviewed risk of needing emergency if we continue. She agrees with plan to proceed with . Dr. Coto aware and agrees with plan. Team notified.
[2023-04-02] MEDS: LACTATED RINGERS 1000 ML 1,000 ML 1200 ML IV (16:52)
--- NOTE | 2023-04-02 16:57 | PM.OBPRCCS ---
Procedure Date of procedure: 04/02/23 Pre-op diagnosis: 38 weeks, PROM, intolerance of labor Post-op diagnosis: same Procedure Done: Global Will [facility] bill your pro fee for this procedure?: Yes Blood Loss Measurement Type: QBL (537 mL) Bakri Used: No Surgeon: Yissel Coto MD Anesthesia type: Epidural Findings: Live-born male , cephalic presentation, occiput posterior presentation with significant caput, umbilical cord loosely wrapped around 1 of the legs, Apgars 8 and 9 at 1 and 5 minutes respectively, weight 7 lb 13 oz. Normal-appearing uterus, tubes, and ovaries. Procedure Description: After obtaining informed consent, the patient was taken to the operating room where epidural anesthesia was found to be adequate. She was prepared and draped in the normal sterile fashion in the dorsal supine position with a leftward tilt. Schaffer catheter previously been inserted into the bladder. A Pfannenstiel skin incision was made with a scalpel. This incision was carried down to the underlying layer of fascia with the Bovie. The fascia was incised in the midline and the incision extended laterally. The superior and inferior aspects of the fascial incision were grasped with Jake clamps, elevated and the underlying rectus muscles dissected off sharply and with electrocautery. The rectus muscles were then in the midline. The Moisés O retractor was then placed into the incision. The lower uterine segment was then incised in a transverse fashion with the scalpel. Upon entry into the uterus, clear amniotic fluid was noted. The uterine incision was extended laterally with blunt finger fractionation. The infant's head was delivered atraumatically, followed by the remainder of the infant's body. The nose and mouth were suctioned with the bulb suction. The cord was doubly clamped and cut, and the was handed off the field to Kezia Zaidi CNP for evaluation. The placenta was delivered spontaneously with umbilical cord traction and fundal massage. The uterus was cleared of all clots and debris. The uterine incision was reapproximated in a running locking fashion with a 0 chromic suture. A 2nd layer of the same suture was used to imbricate in horizontal fashion. The gutters were irrigated and suctioned. All instruments and retractors were removed. The anterior peritoneum was reapproximated in a running fashion with a 3-0 Vicryl suture. The subfascial tissues were carefully inspected and hemostasis assured. The fascia was reapproximated in a running fashion with a looped 0 Maxon suture. The subcutaneous tissues were copiously irrigated. Hemostasis was assured. The subcutaneous fat layer was reapproximated with interrupted sutures of 3-0 plain gut. The skin was closed in a subcuticular fashion with 4-0 Vicryl. Silver Mepilex dressing was applied. The patient tolerated the procedure well. Sponge, lap, needle, and instrument counts were reported as correct x2. The patient was taken to the recovery room, awake, and in stable condition. She did receive 2 g grams of IV Ancef preoperatively, 1000 mL tranexamic acid at cord clamp, and 500 mg azithromycin at the conclusion of the procedure.. Complications: None. Condition: stable Disposition: floor OB Delivery Proc Additional Procedures Tubal Ligation at the time of : No
[2023-04-02] MEDS: CEFAZOLIN 2 GM INJ IVP (17:40)
[2023-04-02] MEDS: TRANEXAMIC ACID 100 MG/ML INJ 1000 MG IV (18:09)
--- NOTE | 2023-04-02 18:22 | SUR.OPER ---
Surgeon denied request to send placenta.
--- NOTE | 2023-04-02 19:19 | W.ANESCHARGE ---
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
--- NOTE | 2023-04-02 19:19 | W.PM.NB ---
Nerve Block Nerve Block Time Seen by Provider: 19:00 Date Seen: 04/02/23 Type of block requested by surgeon for post-operative analgesia: TAP Side: bilateral Time out performed: Yes Verification of patient name: Yes Verification of date of : Yes Site marking: site marked Name of person performing procedure: Kevin Maria Luisa Continuous monitoring Was continuous monitoring of O2 sat, B/P, mobile home park manager, recorded every 15 minutes?: Yes Procedure Checklist: sterile prep, needles and gloves Ultrasound guided. Images saved: Yes Medications given in 5ml increments after negative aspiration: Marcaine %: 0.25 mL: 30 and Exparel mL: 10 Needle gauge: 21 Patient tolerated procedure well: Yes Block Charges Block Charge (with Pro Fee): TAP Bilateral Use of Ultrasound Machine for Block: Yes- US Guidance/pain block
[2023-04-03] VITALS (25 sets, daily range): BP systolic 112–132; BP diastolic 61–86; PULSE 72–92; RESP 16–18; TEMP 36.6–37.2; O2SAT 94–97
[2023-04-03] MEDS: KETOROLAC 30 MG/ML inj IVP ×4 (01:20→19:45)
[2023-04-03] MEDS: ENOXAPARIN 40 MG/0.4 ML INJ SUBCUT (01:24)
[2023-04-03 06:52] LABS: Hemoglobin* 9.8 gm/dL (12.0-16.0)
--- NOTE | 2023-04-03 07:39 | P.OBPN_ITS ---
OB - PN:Subj Subjective Date Seen: 04/03/23 Patient comments OB post-: no complaints, tolerating diet and flatus present [place] status: and doing well [place] feeding status: exclusively Narrative: Day 1:? Vaginal Delivery at 38 and 0/7 weeks.? ?? Complications:? failure to progress leading to a section ? The patient feels well.? The pain is well controlled with current medications.? She has no new complaints.? She has not urinated since her murrieta was removed this morning.? Has a good appetite, is tolerating a general diet, is passing flatus, and has not had a bowel movement.? Has small amount of rubra lochia.? She is ambulating well.?She has been up and ambulated this morning. OB - PN: Obj Exam Physical Exam: Vital signs: Temp Pulse Resp BP Pulse Ox O2 Del Method 98.2 F 87 18 122/77 96 Room Air 04/03/23 04:52 04/03/23 04:52 04/03/23 06:20 04/03/23 04:52 04/03/23 04:52 04/03/23 01:34 Narrative: GENERAL APPEARANCE:? normal affect, alert, no distress? MOOD:? appropriate? CHEST:? clear to auscultation and percussion? HEART:? regular rate and rhythm? ABDOMEN:? soft, non-tender the uterine fundus is U/2 and is appropriate for the stage of recovery.?Incision is coved with a dressing that clean dry and intact.? EXTREMITIES:? normal and no edema? OB - PN: Obj Data Labs Labs: Laboratory Results - last 24 hr 04/02/23 04/03/23 07:44 06:43 WBC 9.09 RBC 4.20 Hgb 12.1 9.8 L Hct 36.9 MCV 88 MCH 29 MCHC 33 RDW Coeff of Umu 13.5 Plt Count 257 Neut % (Auto) 67.8 Lymph % (Auto) 24.9 [place] % (Auto) 6.3 Eos % (Auto) 0.6 Baso % (Auto) 0.3 Neut # (Auto) 6.17 Lymph # (Auto) 2.26 [place] # (Auto) 0.60 Eos # (Auto) 0.05 Baso # (Auto) 0.03 Abs Immat Gran (auto) 0.01 Imm/Tot Granulo (auto) 0.1 Blood Type A Positive Antibody Screen NEGATIVE OB - PN: A/P Delivery Assessment and Plan (1) care following delivery: Status: Acute (2) Lactating mother: Status: Acute Plan day: 1 Plan: routine care
[2023-04-04] MEDS: ENOXAPARIN 40 MG/0.4 ML INJ SUBCUT (01:35)
[2023-04-04] MEDS: IBUPROFEN 600 MG TABLET PO ×2 (01:44→08:45)
[2023-04-04 04:37] VITALS: BP 133/87; PULSE 91; RESP 16; TEMP 36.2; O2SAT 98
--- NOTE | 2023-04-04 07:32 | PM.OBDSVD1 ---
DS: Providers Provider Time Seen by Provider: 07:32 Date Seen: 04/04/23 Date of admission: 04/01/23 14:55 Primary care physician: Cally Car MD Admitting Clinician: Nkechi Quezada CNM Attending Physician on discharge: Nkechi Quezada CNM Date of Discharge: 04/04/23 DS: Diagnosis Discharge Diagnosis (1) care following delivery: Status: Acute (2) Lactating mother: Status: Acute Exam Narrative: Exam Narrative: VSS. ?Afebrile GENERAL APPEARANCE: ?normal affect, alert, no distress MOOD: ?appropriate HEENT: normocephalic, neck supple, full ROM CHEST: ?Symmetrical chest wall movement. ?Normal respiratory effort. ?Clear to auscultation HEART: ?regular rate and rhythm ABDOMEN: ?soft, non-tender. Uterine fundus is firm, at Umbilicus, Midline and is appropriate for the stage of recovery. ?Bowel sounds present. EXTREMITIES: ?normal and trace edema SKIN: warm, dry. ?Dressing on, clean/dry/intact. ?No signs of infection noted. Const: Vital Signs, click to edit/add: Vital Signs - 24 hr 04/03/23 07:49 04/03/23 08:20 04/03/23 09:20 Temperature 97.9 F Pulse Rate [Blood Pressure Cuff] 72 Respiratory Rate 16 16 16 Blood Pressure [Ri ght Arm] 132/86 Pulse Oximetry 95 Oxygen Delivery Me thod Room Air 04/03/23 10:20 04/03/23 11:15 04/03/23 11:20 Temperature 97.8 F Pulse Rate [Blood Pressure Cuff] 76 Respiratory Rate 16 16 16 Blood Pressure [Ri ght Arm] 122/80 Pulse Oximetry 97 Oxygen Delivery Me thod Room Air 04/03/23 12:20 04/03/23 13:20 04/03/23 14:20 Temperature Pulse Rate [Blood Pressure Cuff] Respiratory Rate 16 16 16 Blood Pressure [Ri ght Arm] Pulse Oximetry Oxygen Delivery Me thod 04/03/23 15:15 04/03/23 15:20 04/03/23 16:20 Temperature 98.9 F Pulse Rate [Blood Pressure Cuff] 91 Respiratory Rate 16 16 16 Blood Pressure [Ri ght Arm] 118/81 Pulse Oximetry 95 Oxygen Delivery Me thod Room Air 04/03/23 17:20 04/03/23 18:20 04/03/23 19:56 Temperature 98.1 F Pulse Rate [Blood Pressure Cuff] 92 Respiratory Rate 16 16 16 Blood Pressure [Ri ght Arm] 112/61 Pulse Oximetry 96 Oxygen Delivery Me thod Room Air 04/04/23 04:37 Temperature 97.2 F L Pulse Rate [Blood Pressure Cuff] 91 Respiratory Rate 16 Blood Pressure [Ri ght Arm] 133/87 Pulse Oximetry 98 Oxygen Delivery Me thod Room Air OB - DS: Summary Hospital Course Hospital Course: Sandrine is a 27 y.o. G 2 P 1 who was admitted to [facility] for PROM. ?She had an uncomplicated . ? The patient feels well. ?The pain is well controlled with current medications. ?She has no new complaints. ?She is breast feeding and reports things are overall going well, but that baby is a bit sleepy.? the patient has done well.? Vitals have been stable.? She has remained afebrile.? Has a good appetite, is tolerating a general diet. ?She is voiding without difficulty.? She is passing gas and has not had a bowel movement.? She is ambulating and denies any dizziness.? Has Small amount of rubra lochia. She is undecided about prevention. Considering POPs, IUD, or NFP Problems: none plan: Discharge home with baby. Follow up in 2 weeks and 6 weeks. , may follow up with if needed Acute anemia, continue iron supplementation for 6 weeks Mildly elevated BP this am. -Will repeat, if remains 130s/80s, will send home with BP cuff and have her continue to monitor at home -If 140/90s, will get labs and encourage her to stay for another day for continued monitoring. Peripartum Data delivery method: Primary C/S; Labored Procedures: Procedures Operation Date: 04/02/23 15:45 Actual Procedure Side Surgeon p Section Yissel Coto MD complications: none [place] Infant Gender: Male Infant Discharge Plan: Home Status at Discharge Functional status at discharge: independent ambulation Overall status at discharge: patient is progressing back to baseline Time Spent with Patient Time attestation: Total time spent providing and/or coordinating discharge services: Time spent: Less than 30 minutes Discharge Plan Discharge Disposition: Home, Self-Care Date of Admission: 04/01/23 14:55 Attending Provider on Discharge: Ledy Drew Primary Care Provider: Cally Car Condition: Stable Anticipated Discharge Date/Time: 04/04/23 12:00 Discharge Medications: New docusate sodium 100 mg Capsule 100 mg PO BID PRNQty: 100 0RF Rx Instructions: Take 1 cap 1-2 times a day as needed for constipation ibuprofen 600 mg Tablet 600 mg PO Q6H PRN (Reason: Pain) Qty: 60 0RF oxycodone 5 mg Tablet 5 - 10 mg PO Q4H PRN (Reason: Pain) Qty: 20 0RF Continued DHA 200 mg capsule 500 mg PO DAILY Fergon 225 mg (27 mg iron) tablet 225 mg PO QDAY magnesium 250 mg tablet 250 mg PO QDAY Discharge Orders: Discharge Order (Routine); Ordered 04/04/23 Ordered By: Ledy Drew Patient Education: OB Over the Counter Medication Information, OB /Breast Feeding Additional Instructions: Remove dressing 7 days after , call for concerns of infection Follow up in clinic in 2 weeks and 6 weeks. Call for signs of preeclampsia - headache, vision changes, pain on the right side where your ribs end. Activity Level: Activity as Tolerated Discharge Diet: Regular Follow Up Appointments: Cally Car MD [Primary Care Provider] - Forms: MyHealth Info Instructions
[2023-04-04 08:16] VITALS: BP 129/85; PULSE 85; RESP 16; TEMP 36.8; O2SAT 98
[2023-04-04] MEDS: DOCUSATE SODIUM 100 MG CAPSULE PO (08:53)
[2023-04-04 12:56] VITALS: BP 112/75; PULSE 93
== END 2023-04-04 12:55 | disposition home or self-care (01) | DRG 540 ==
LOC: OB OUT 14:58 → OB 14:59
PROVIDERS: Obstetrics & Gynecology; Admitting Provider Advanced Practice Midwife; PCP Family Medicine; Visit Provider Advanced Practice Midwife
PROC: 10D00Z1 Extraction of Products of Conception, Low, Open Approach (ICD-10-PCS; CPT 59514; principal; 2023-04-02 15:30)
DX: O42.12 Full-term premature rupture of membranes, onset of labor more than 24 hours following rupture (principal); O76 Abnormality in fetal heart rate and rhythm complicating labor and delivery; Z3A.37 37 weeks gestation of pregnancy; Z37.0 Single live birth; O90.81 Anemia of the puerperium; D62 Acute posthemorrhagic anemia; G89.18 Other acute postprocedural pain
CPT/HCPCS: 01967; 01968; 36415; 51798; 59200; 64488; 76942; 84112; 85018; 85025; 86850; 86900; 86901; 99140; A9270; C9290; J0665; J0690; J1100; J1200; J1650; J1885; J2274; J2371; J2590; J2795; J7120; S0020

== ENCOUNTER 2023-06-16 19:14 | Emergency (ER) | payer BC, SELFPAY ==
[2023-06-16 19:37] VITALS: BP 114/78; PULSE 105; RESP 16; TEMP 37.2; O2SAT 94
[2023-06-16 20:35] VITALS: RESP 16
[2023-06-16 20:40] LABS: PCR FLU A Negative PCR FLU A (Negative); PCR FLU B Negative PCR FLU B (Negative); PCR RSV Negative PCR RSV (Negative)
[2023-06-16 20:44] LABS: SARS PCR* POSITIVE SARS-CoV-2 (Negative)
--- NOTE | 2023-06-16 21:00 | ED.GENADULT ---
HPI - General Adult General Chief complaint: Unspecified Complaint, Adult Stated complaint: fever, possible flu Time Seen by Provider: 06/16/23 20:52 Source: patient Mode of arrival: ambulatory Limitations: no limitations History of Present Illness HPI narrative: 27-year-old female presenting today with fever, body aches and cough going on for 2 days. Fever was as high as 104 yesterday. She did take Tylenol which did bring it down. Patient is an 11-week-old baby. No vomiting. She does feel nauseated on and off. She is able to eat and drink without difficulty. She is on oral contraceptives. Patient is vaccinated for COVID-19. Related Data Home Medications Medication Instructions Recorded Confirmed docosahexaenoic acid 200 mg 500 mg PO DAILY 09/06/22 05/16/23 capsule ( DHA) ferrous gluconate 225 mg (27 mg 225 mg PO QDAY 09/06/22 05/16/23 iron) tablet (Fergon) Previous Rx's Medication Instructions Recorded ibuprofen 600 mg tablet 600 mg PO Q6H PRN Pain #60 tabs 04/04/23 norethindrone (contraceptive) 0.35 0.35 mg PO QDAY #84 tabs 05/16/23 mg tablet Allergies Allergy/AdvReac Type Severity Reaction Status Date / Time Penicillins Allergy Unknown Verified 06/16/23 19:40 walnut AdvReac Intermediate Swelling Verified 06/16/23 19:40 of Lip/Tongue/Throat ondansetron [From Zofran] AdvReac Mild Gastrointestinal Verified 06/16/23 19:40 Upset dairy AdvReac Intermediate Hives Uncoded 05/16/23 09:24 Review of Systems Status of ROS: Reports: 10 or more systems reviewed and unremarkable except as noted in History and below [facility] Medical History Miscarriage ?O03.9 - Complete or unspecified spontaneous without complication (ICD-10) Migraine with aura ?G43.109 - Migraine with aura, not intractable, without status migrainosus (ICD-10) Surgical History H/O wisdom tooth extraction ?K08.409 - Partial loss of teeth, unspecified cause, unspecified class (ICD-10) Social History Narrative: 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 Interestingly, she is also vegan. She has some college education. She is originally from [place] but lived in [place] for some years. She exercises 5-7 days / week. She smokes 3 cigs / day, and started after diagnosis of miscarriage. She drinks a little wine on weekends. She doesn't use recreational drugs What is your current living situation?: I presently have a place to live Problems where you live: no known problems In the past 12 months, utilities in danger of being shut off: no In past 12 months, lack of transportation kept you from medical appts, meetings, work, or getting things needed for daily living: no In the past 12 mos, have been you worried that your food would run out before you had money to buy more?: never true In the past 12 mos, the food you bought just didn't last and you didn't have money to buy more?: never true Smoking Status: Former smoker Do you use any of these nicotine containing products: None How often do you have a drink containing alcohol: never AUDIT-C Alcohol total score: 0 Non-prescribed substance use: denies use How often does anyone, including family, friends and others, physically hurt you: never How often does anyone, including family, friends and others, insult or talk down to you: never How often does anyone, including family, friends and others, threaten you with harm: never How often does anyone, including family, friends and others, scream or curse at you: never Little interest or pleasure in doing things: not at all Feeling down, depressed, or hopeless: not at all Exam Narrative: Exam Narrative: Well-nourished well-developed patient in no acute distress. Alert and oriented. Answers questions appropriately. Mood and affect are appropriate. Thoughts are goal oriented and rational. No tangential or magical thinking noted. Patient speaks in full sentences without needing to catch her breath. Speech is not slurred or pressured. She is not sound congested. HEENT: Normocephalic atraumatic. Pupils are equally round reactive to light. Extraocular muscles are intact. Conjunctivae are moist without any icterus noted. Moist mucous membranes. Posterior pharynx is normal. Neck is soft without any lymphadenopathy or thyromegaly. No masses are appreciated. Cardiovascular: Heart is regular rate and rhythm S1 and S2 are present without any murmurs. Lungs: Clear to auscultation bilaterally no wheezes rhonchi or rales are appreciated. Patient takes deep breaths without any discomfort. Abdomen: Soft and nontender nondistended with normal bowel sounds. Extremities: Bilateral lower extremities are without edema. Skin: Well perfused without any obvious rashes. Const: Vital Signs, click to edit/add: Vital Signs - 24 hr 06/16/23 19:37 Temperature 99.0 F Pulse Rate [Right Pulse Oximeter] 105 H Respiratory Rate 16 Blood Pressure [Le ft Upper Arm] 114/78 Pulse Oximetry 94 Oxygen Delivery Me thod Room Air Course Course ED Course: Triple swab is positive for the COVID-19. Vital Signs Vital signs: Initial Vital Signs Temperature 99.0 F 06/16/23 19:37 Temperature Source Temporal Artery Scan 06/16/23 19:37 Pulse Rate 105 H 06/16/23 19:37 Pulse Rhythm Regular 06/16/23 19:37 Pulse Strength 3+ Normal 06/16/23 19:37 Respiratory Rate 16 06/16/23 19:37 Blood Pressure 114/78 06/16/23 19:37 Blood Pressure Mean 90 06/16/23 19:37 Blood Pressure Position Sitting 06/16/23 19:37 Pulse Oximetry 94 06/16/23 19:37 Oxygen Delivery Method Room Air 06/16/23 19:37 Vital Signs Temperature 99.0 F 06/16/23 19:37 Pulse Rate 105 H 06/16/23 19:37 Respiratory Rate 16 06/16/23 19:37 Blood Pressure 114/78 06/16/23 19:37 Pulse Oximetry 94 06/16/23 19:37 Oxygen Delivery Method Room Air 06/16/23 19:37 Temperature 99.0 F 06/16/23 19:37 Pulse Rate 105 H 06/16/23 19:37 Respiratory Rate 16 06/16/23 19:37 Blood Pressure 114/78 06/16/23 19:37 Pulse Oximetry 94 06/16/23 19:37 Oxygen Delivery Method Room Air 06/16/23 19:37 Medical Decision Making MDM Narrative Medical decision making narrative: 27-year-old female with COVID-19. We discussed that the studies are very limited when it comes to Paxlovid and breast feeding. Because she is otherwise healthy, I do not recommend Paxlovid at this time. We discussed hydration, Tylenol ibuprofen use. We also discussed reasons to return to the ER. Patient had no other questions. Lab Data Lab results reviewed: Yes I reviewed the patient's lab results Labs: Lab Results 06/16/23 Range/Units 19:31 SARS-CoV-2 (PCR) POSITIVE SARS-CoV-2 A (Negative) Influenza Type A (PCR) Negative PCR FLU A (Negative) Influenza Type B (PCR) Negative PCR FLU B (Negative) RSV (PCR) Negative PCR RSV (Negative) Discharge Plan Discharge Clinical Impression: COVID-19 Patient Disposition: Home, Self-Care Condition: Stable Additional Instructions: Make sure to stay well hydrated. You should be masked at all times, especially around the baby. Okay to take usual dosing (seen on the back of the bottle) of Tylenol and Ibuprofen as needed for fevers and aches. Prescriptions: No Action DHA 200 mg capsule 500 mg PO DAILY Fergon 225 mg (27 mg iron) tablet 225 mg PO QDAY norethindrone (contraceptive) 0.35 mg tablet 0.35 mg PO QDAY Qty: 84 3RF ibuprofen 600 mg Tablet 600 mg PO Q6H PRN (Reason: Pain) Qty: 60 0RF Follow Up/Referrals: Cally Car MD [Primary Care Provider] - Stand Alone Forms: [employer] Info Instructions
[2023-06-16 21:40] VITALS: BP 118/74; PULSE 89; RESP 16; TEMP 37.2; O2SAT 94
[2023-06-16 21:43] VITALS: BP 118/74; PULSE 89; RESP 16; TEMP 37.2
== END 2023-06-16 21:43 | disposition home or self-care (01) ==
LOC: ED 21:10
PROVIDERS: Emergency Provider Family Medicine; PCP Family Medicine
DX: U07.1 COVID-19 (principal)
CPT/HCPCS: 87631; 99282; 99283; 99284

== ENCOUNTER 2023-07-07 11:00 | Outpatient (RCR) | payer BC, SELFPAY | END 2023-08-25 12:30 | disposition home or self-care (01) | PROVIDERS: PCP Family Medicine; Visit Provider Advanced Practice Midwife | DX: Z39.2 Encounter for routine postpartum follow-up (principal); L76.82 Other postprocedural complications of skin and subcutaneous tissue; R10.30 Lower abdominal pain, unspecified; R27.8 Other lack of coordination; Z51.89 Encounter for other specified aftercare | CPT/HCPCS: 97110; 97112; 97140; 97161; 97535 ==

== ENCOUNTER 2024-12-06 09:11 | Outpatient (CLI) | payer BC, SELFPAY | END 2024-12-06 09:12 | disposition home or self-care (01) | LOC: NFLDREF 12-08 02:50 | PROVIDERS: PCP Family Medicine; Referring Provider Family Medicine; Visit Provider Nurse Practitioner | DX: N30.01 Acute cystitis with hematuria (principal) | CPT/HCPCS: 87086 ==

== ENCOUNTER 2025-03-01 15:18 | Outpatient (CLI) | payer BC, SELFPAY | END 2025-03-01 15:19 | disposition home or self-care (01) | LOC: NFLDREF 15:19 | PROVIDERS: PCP Family Medicine; Visit Provider Advanced Practice Midwife | DX: L65.9 Nonscarring hair loss, unspecified (principal) | CPT/HCPCS: 84439; 84443; 84480 ==